=== PATIENT | female | born 1955 | race Caucasian/White ===

== ENCOUNTER 2024-12-24 11:18 | Inpatient (IN) ==
[2024-12-24] MEDS: 0.9 % SODIUM CHLORIDE 1,000 ML IV ONE ×2 (11:18→13:00)
[2024-12-24] MEDS ORDERED: IOPAMIDOL 100 ML BOTTLE IV ONE (11:19)
[2024-12-24] MEDS: MAG HYDROX/AL HYDROX/SIMETH 30 ML ORAL.SUSP PO ONE (11:44)
[2024-12-24] MEDS: PANTOPRAZOLE 40 MG VIAL IV ONE (11:45)
[2024-12-24 12:34] LABS: Basophils # (Auto) 0.02 K/mcL (0.00-0.30); Basophils % (Auto) 0.1 % (0.0-2.0); Eosinophils # (Auto) 0.01 K/mcL (0.00-0.70); Eosinophils % (Auto) 0.1 % (0.0-7.0); Hematocrit 39.3 % (34.1-44.9); Hemoglobin 12.7 g/dL (11.2-15.7); Lymphocytes # (Auto) 2.23 K/mcL (1.50-4.80); Lymphocytes % (Auto) 15.6 % (15.5-49.0); Mean Corpuscular HGB Conc 32.3 g/dL (31.0-36.0); Monocytes # (Auto) 1.00 K/mcL (0.10-0.90); Monocytes % (Auto) 7.0 % (1.0-12.0); Neutrophils % (Auto) 77.0 % (38.0-78.0); Platelet Count 457 K/mcL (140-440); RBC 4.43 M/mcL (3.59-5.38); WBC 14.3 K/mcL (4.5-11.0)
[2024-12-24 12:47] LABS: ALT/SGPT 18 U/L (<40); AST/SGOT 18 U/L (<32); Albumin 3.8 gm/dL (3.2-5.2); Albumin/Globulin Ratio 1.4 (1.0-2.3); Alkaline Phosphatase 82 U/L (39-117); Anion Gap 20.0 (8.0-16.0); Bilirubin,Total 0.5 mg/dL (0.1-1.0); Blood Urea Nitrogen 24 mg/dL (8-23); Calcium 8.1 mg/dL (8.6-10.4); Carbon Dioxide 10 mmol/L (22-30); Chloride 104 mmol/L (96-108); Globulin 2.8 gm/dL (2.2-3.7); Glucose 141 mg/dL (70-105); Potassium 3.3 mmol/L (3.3-5.1); Sodium 134 mmol/L (133-145)
[2024-12-24 15:47] LABS: Anion Gap 18.0 (8.0-16.0); Blood Urea Nitrogen 20 mg/dL (8-23); Calcium 7.5 mg/dL (8.6-10.4); Carbon Dioxide 10 mmol/L (22-30); Chloride 106 mmol/L (96-108); Glucose 124 mg/dL (70-105); Potassium 3.2 mmol/L (3.3-5.1); Sodium 134 mmol/L (133-145)
[2024-12-24] MEDS: DEXTROSE 5%-NS 1,000 ML IV SCH ×2 (16:27→17:32)
[2024-12-24 17:29] LABS: Alcohol,Blood < 0.010 gm/dL (<0.010)
[2024-12-24] MEDS ORDERED: DEXTROSE 50% 50 ML VIAL IV PRN (20:06)
[2024-12-24] MEDS ORDERED: PHENobarb/HYOSCY/ATROPINE/SCOP 1 DOSE BOTTLE PO PRN (20:06)
[2024-12-24] MEDS ORDERED: DEXTROSE 31 GM ORAL.SUSP PO PRN (20:06)
[2024-12-24 20:27] LABS: Bilirubin,Urine Negative (Negative); Color,Urine Yellow; Glucose,Urine (UA) 500 mg/dL (Negative); Ketones,Urine >=160 mg/dL (Negative); Leukocyte Esterase,Urine Negative /uL (Negative); Mucus,Urine Few /hpf; PH,Urine 5.5 (5.0-9.0); Protein,Urine 30 mg/dL (Negative); Specific Gravity,Urine 1.020 (1.000-1.035); Urobilinogen,Urine Normal
[2024-12-24] MEDS: ACETAMINOPHEN 1,000 MG/100 ML BAG IV SCH (20:30)
[2024-12-24] MEDS: POTASSIUM CHLORIDE 40 MEQ in DEXTROSE 5% IN WATER 500 ML IV ONE (20:36)
[2024-12-24] MEDS: POTASSIUM CHLORIDE 20 MEQ/10 ML VIAL IV ONE (20:37)
[2024-12-24] MEDS: ACETAMINOPHEN 1,000 MG/100 ML BAG IV ONE (20:37)
[2024-12-24] MEDS: THIAMINE 100 MG/ML VIAL ONE (21:00)
[2024-12-24] MEDS: THIAMINE 100 MG in 0.9 % SODIUM CHLORIDE 50 ML IV SCH (21:01)
[2024-12-24] MEDS: PANTOPRAZOLE 40 MG VIAL IV SCH (21:03)
[2024-12-24] MEDS: DOCUSATE SODIUM 100 MG CAPSULE PO SCH (21:37)
[2024-12-24] MEDS: SENNOSIDES 1 TABLET PO SCH (21:37)
[2024-12-24] MEDS: FAMOTIDINE/PF 20 MG/2 ML VIAL IV SCH (21:37)
[2024-12-24] MEDS: CALCIUM CARBONATE 500 MG TAB.CHEW CHEWED PRN (21:37)
[2024-12-24] MEDS: HEPARIN 5,000 UNIT/ML VIAL SQ SCH (21:37)
[2024-12-24] MEDS: NYSTATIN 500,000 UNITS/5 ML ORAL.SUSP SSW SCH (21:37)
[2024-12-24] MEDS: 0.9 % SODIUM CHLORIDE 10 ML SYRINGE IV SCH (21:38)
[2024-12-24] MEDS: INSULIN LISPRO 1 UNIT/0.01 ML UNIT SQ SCH (21:43)
[2024-12-24] MEDS: DEXTROSE 5%-1/2NS W/40MEQ KCL 1,000 ML IV SCH (21:44)
[2024-12-24] MEDS: ONDANSETRON 4 MG/2 ML VIAL IV PRN (23:13)
[2024-12-24] MEDS: HYDROmorphone 0.5 MG/0.5 ML SYRINGE IV PRN (23:13)
[2024-12-25 05:05] LABS: Basophils # (Auto) 0.02 K/mcL (0.00-0.30); Basophils % (Auto) 0.2 % (0.0-2.0); Eosinophils # (Auto) 0.12 K/mcL (0.00-0.70); Eosinophils % (Auto) 1.1 % (0.0-7.0); Hematocrit 34.5 % (34.1-44.9); Hemoglobin 11.5 g/dL (11.2-15.7); Lymphocytes # (Auto) 2.36 K/mcL (1.50-4.80); Lymphocytes % (Auto) 22.4 % (15.5-49.0); Mean Corpuscular HGB Conc 33.3 g/dL (31.0-36.0); Monocytes # (Auto) 0.72 K/mcL (0.10-0.90); Monocytes % (Auto) 6.8 % (1.0-12.0); Neutrophils % (Auto) 69.3 % (38.0-78.0); Platelet Count 380 K/mcL (140-440); RBC 4.00 M/mcL (3.59-5.38); WBC 10.5 K/mcL (4.5-11.0)
[2024-12-25 05:43] LABS: VBG HCO3 15.4 mmol/L (24.0-28.0); VBG PCO2 26.0 mmHg (41.0-51.0); VBG PH 7.39 U (7.32-7.42); VBG PO2 161.9 mmHg (25.0-40.0)
[2024-12-25 05:47] LABS: Beta Hydroxybutyrate 1.83 mmol/L (<0.27)
[2024-12-25 07:12] LABS: ALT/SGPT 17 U/L (<40); AST/SGOT 15 U/L (<32); Albumin 3.3 gm/dL (3.2-5.2); Albumin/Globulin Ratio 1.5 (1.0-2.3); Alkaline Phosphatase 67 U/L (39-117); Anion Gap 10.0 (8.0-16.0); Bilirubin,Direct < 0.2 mg/dL (0-0.3); Bilirubin,Total 0.4 mg/dL (0.1-1.0); Blood Urea Nitrogen 9 mg/dL (8-23); Calcium 7.6 mg/dL (8.6-10.4); Carbon Dioxide 16 mmol/L (22-30); Chloride 108 mmol/L (96-108); Globulin 2.2 gm/dL (2.2-3.7); Glucose 163 mg/dL (70-105); Phosphorous 0.9 mg/dL (2.5-4.5); Potassium 3.9 mmol/L (3.3-5.1); Sodium 134 mmol/L (133-145); Triglycerides 165 mg/dL (<150); Uric Acid 4.7 mg/dL (2.5-8.0)
[2024-12-25] MEDS: POTASSIUM CHLORIDE 40 MEQ in DEXTROSE 5%-1/2NS 1,000 ML IV SCH (08:10)
[2024-12-25] MEDS: HYDROmorphone 0.5 MG/0.5 ML SYRINGE IV PRN (08:52)
[2024-12-25] MEDS: VITAMIN D3 25 MCG TABLET PO SCH (08:53)
[2024-12-25] MEDS: DEXTROSE 5%-1/2NS W/10MEQ KCL 1,000 ML IV SCH (08:53)
[2024-12-25] MEDS: POTASSIUM PHOSPHATE 40 MEQ in DEXTROSE 5% IN WATER 500 ML IV ONE (09:11)
[2024-12-25] MEDS ORDERED: ALBUTEROL SULFATE 60 PUFF INHALER INH PRN (09:49)
[2024-12-25] MEDS: FLUCONAZOLE 100 MG TABLET PO ONE (10:23)
[2024-12-25] MEDS: LIDOCAINE VISCOUS 2% 1 ML SOLUTION PO PRN (11:43)
[2024-12-25] MEDS: ATORVASTATIN 40 MG TABLET PO SCH (20:52)
[2024-12-26 06:24] LABS: Basophils # (Auto) 0.04 K/mcL (0.00-0.30); Basophils % (Auto) 0.5 % (0.0-2.0); Eosinophils # (Auto) 0.45 K/mcL (0.00-0.70); Eosinophils % (Auto) 5.5 % (0.0-7.0); Hematocrit 34.5 % (34.1-44.9); Hemoglobin 11.1 g/dL (11.2-15.7); Lymphocytes # (Auto) 3.05 K/mcL (1.50-4.80); Lymphocytes % (Auto) 37.6 % (15.5-49.0); Mean Corpuscular HGB Conc 32.2 g/dL (31.0-36.0); Monocytes # (Auto) 0.66 K/mcL (0.10-0.90); Monocytes % (Auto) 8.1 % (1.0-12.0); Neutrophils % (Auto) 48.2 % (38.0-78.0); Platelet Count 329 K/mcL (140-440); RBC 3.91 M/mcL (3.59-5.38); WBC 8.1 K/mcL (4.5-11.0)
[2024-12-26 06:45] LABS: ALT/SGPT 15 U/L (<40); AST/SGOT 19 U/L (<32); Albumin 3.1 gm/dL (3.2-5.2); Albumin/Globulin Ratio 1.4 (1.0-2.3); Alkaline Phosphatase 62 U/L (39-117); Anion Gap 10.0 (8.0-16.0); Bilirubin,Direct < 0.2 mg/dL (0-0.3); Bilirubin,Total 0.4 mg/dL (0.1-1.0); Blood Urea Nitrogen 6 mg/dL (8-23); Calcium 8.0 mg/dL (8.6-10.4); Carbon Dioxide 18 mmol/L (22-30); Chloride 107 mmol/L (96-108); Globulin 2.2 gm/dL (2.2-3.7); Glucose 120 mg/dL (70-105); Phosphorous 1.2 mg/dL (2.5-4.5); Potassium 3.6 mmol/L (3.3-5.1); Sodium 135 mmol/L (133-145); Triglycerides 121 mg/dL (<150); Uric Acid 1.7 mg/dL (2.5-8.0)
[2024-12-26] MEDS: THIAMINE 100 MG/ML VIAL ONE (08:56)
[2024-12-26] MEDS: LOSARTAN 50 MG TABLET PO SCH (08:57)
[2024-12-26] MEDS: CLOPIDOGREL 75 MG TABLET PO SCH (08:57)
[2024-12-26] MEDS: METOPROLOL SUCCINATE 25 MG TAB.XL.24H PO SCH (08:57)
[2024-12-26] MEDS: FLUCONAZOLE 100 MG TABLET PO SCH (08:58)
[2024-12-26] MEDS: POTASSIUM PHOSPHATE 40 MEQ in DEXTROSE 5% IN WATER 500 ML IV ONE (10:09)
[2024-12-26] MEDS: SUCRALFATE 1 GM/10 ML ORAL.SUSP PO SCH (11:22)
[2024-12-26] MEDS: LACTATED RINGERS 1,000 ML IV SCH (13:24)
[2024-12-26] MEDS: NYSTATIN 500,000 UNITS/5 ML ORAL.SUSP SSW SCH (16:40)
[2024-12-27 06:36] LABS: ALT/SGPT 15 U/L (<40); AST/SGOT 14 U/L (<32); Albumin 3.0 gm/dL (3.2-5.2); Albumin/Globulin Ratio 1.6 (1.0-2.3); Alkaline Phosphatase 60 U/L (39-117); Anion Gap 10.0 (8.0-16.0); Bilirubin,Direct < 0.2 mg/dL (0-0.3); Bilirubin,Total 0.3 mg/dL (0.1-1.0); Blood Urea Nitrogen 8 mg/dL (8-23); Calcium 8.2 mg/dL (8.6-10.4); Carbon Dioxide 22 mmol/L (22-30); Chloride 108 mmol/L (96-108); Globulin 1.9 gm/dL (2.2-3.7); Glucose 116 mg/dL (70-105); Phosphorous 1.9 mg/dL (2.5-4.5); Potassium 3.5 mmol/L (3.3-5.1); Sodium 140 mmol/L (133-145); Triglycerides 114 mg/dL (<150); Uric Acid 1.2 mg/dL (2.5-8.0)
[2024-12-27 07:58] LABS: Basophils # (Auto) 0.04 K/mcL (0.00-0.30); Basophils % (Auto) 0.7 % (0.0-2.0); Eosinophils # (Auto) 0.35 K/mcL (0.00-0.70); Eosinophils % (Auto) 6.2 % (0.0-7.0); Hematocrit 32.4 % (34.1-44.9); Hemoglobin 10.9 g/dL (11.2-15.7); Lymphocytes # (Auto) 2.21 K/mcL (1.50-4.80); Lymphocytes % (Auto) 39.2 % (15.5-49.0); Mean Corpuscular HGB Conc 33.6 g/dL (31.0-36.0); Monocytes # (Auto) 0.44 K/mcL (0.10-0.90); Monocytes % (Auto) 7.8 % (1.0-12.0); Neutrophils % (Auto) 45.6 % (38.0-78.0); Platelet Count 273 K/mcL (140-440); RBC 3.80 M/mcL (3.59-5.38); WBC 5.6 K/mcL (4.5-11.0)
[2024-12-27] MEDS: POTASSIUM PHOSPHATE 40 MEQ in DEXTROSE 5% IN WATER 500 ML IV ONE (08:52)
[2024-12-28] MEDS ORDERED: METHOCARBAMOL 500 MG TABLET PO PRN (06:40)
[2024-12-28] MEDS: HYDROCODONE/APAP 7.5/325MG TABLET PO PRN (08:55)
[2024-12-28] MEDS: THIAMINE 100 MG/ML VIAL ONE (08:56)
[2024-12-28 09:06] LABS: ALT/SGPT 22 U/L (<40); AST/SGOT 23 U/L (<32); Albumin 3.1 gm/dL (3.2-5.2); Albumin/Globulin Ratio 1.6 (1.0-2.3); Alkaline Phosphatase 61 U/L (39-117); Anion Gap 8.0 (8.0-16.0); Bilirubin,Direct < 0.2 mg/dL (0-0.3); Bilirubin,Total 0.3 mg/dL (0.1-1.0); Blood Urea Nitrogen 9 mg/dL (8-23); Calcium 8.5 mg/dL (8.6-10.4); Carbon Dioxide 24 mmol/L (22-30); Chloride 109 mmol/L (96-108); Globulin 2.0 gm/dL (2.2-3.7); Glucose 136 mg/dL (70-105); Phosphorous 2.5 mg/dL (2.5-4.5); Potassium 3.8 mmol/L (3.3-5.1); Sodium 141 mmol/L (133-145); Triglycerides 118 mg/dL (<150); Uric Acid 1.4 mg/dL (2.5-8.0)
[2024-12-28] MEDS: THIAMINE 100 MG in 0.9 % SODIUM CHLORIDE 50 ML IV SCH (09:44)
[2024-12-29 06:41] LABS: Basophils # (Auto) 0.04 K/mcL (0.00-0.30); Basophils % (Auto) 0.6 % (0.0-2.0); Eosinophils # (Auto) 0.23 K/mcL (0.00-0.70); Eosinophils % (Auto) 3.3 % (0.0-7.0); Hematocrit 34.3 % (34.1-44.9); Hemoglobin 11.2 g/dL (11.2-15.7); Lymphocytes # (Auto) 2.59 K/mcL (1.50-4.80); Lymphocytes % (Auto) 37.6 % (15.5-49.0); Mean Corpuscular HGB Conc 32.7 g/dL (31.0-36.0); Monocytes # (Auto) 0.56 K/mcL (0.10-0.90); Monocytes % (Auto) 8.1 % (1.0-12.0); Neutrophils % (Auto) 50.1 % (38.0-78.0); Platelet Count 287 K/mcL (140-440); RBC 3.90 M/mcL (3.59-5.38); WBC 6.9 K/mcL (4.5-11.0)
[2024-12-29 07:03] LABS: ALT/SGPT 30 U/L (<40); AST/SGOT 25 U/L (<32); Albumin 3.2 gm/dL (3.2-5.2); Albumin/Globulin Ratio 1.5 (1.0-2.3); Alkaline Phosphatase 61 U/L (39-117); Anion Gap 10.0 (8.0-16.0); Bilirubin,Direct < 0.2 mg/dL (0-0.3); Bilirubin,Total 0.3 mg/dL (0.1-1.0); Blood Urea Nitrogen 9 mg/dL (8-23); Calcium 9.0 mg/dL (8.6-10.4); Carbon Dioxide 24 mmol/L (22-30); Chloride 107 mmol/L (96-108); Globulin 2.1 gm/dL (2.2-3.7); Glucose 134 mg/dL (70-105); Phosphorous 2.8 mg/dL (2.5-4.5); Potassium 3.7 mmol/L (3.3-5.1); Sodium 141 mmol/L (133-145); Triglycerides 138 mg/dL (<150); Uric Acid 1.5 mg/dL (2.5-8.0)
[2024-12-29 09:56] VITALS: O2SAT 99
[2024-12-29] MEDS ORDERED: LIDOCAINE 2% PF 5 ML VIAL IJ ONE (10:46)
[2024-12-29] MEDS ORDERED: PROPOFOL 200 MG/20 ML VIAL IV ONE (10:46)
[2024-12-29] MEDS ORDERED: THIAMINE 100 MG/ML VIAL ONE (11:28)
[2024-12-29 13:44] VITALS: TEMP 97.7
== END 2024-12-29 13:19 | disposition home or self-care (01) | DRG 641 ==
LOC: ED 11:18 → MEDSUR 20:03
PROVIDERS: ADMIT Internal Medicine; ATTEND Internal Medicine